=== PATIENT | female | born 1950 | race Caucasian/White ===

== ENCOUNTER 2016-07-02 19:34 | Emergency (ER) | payer OTHER ==
--- NOTE | 2016-07-02 20:39 | DIAGNOSTIC IMAGING REPORT ---
PROCEDURE: XR HAND 3 OR 4 VIEWS - LEFT INDICATION: TRAUMA/INJURY TECHNIQUE: Four views. COMPARISON: None. FINDINGS: No fracture or dislocation. Osteopenia. Mild DIP joint degenerative changes. Soft tissues are unremarkable. IMPRESSION: 1. No acute changes 2. Osteoarthritic changes
--- NOTE | 2016-07-02 22:12 | ED ORDER SUMMARY ---
..... Patient: LOUISE SAMPSON OrderSheet [facility] VisitID: [id number] [address] [place] [address] 65y, F Registration Date/Time: 07/02/2016 ORDER SHEET Weight: 72.5 kg (stated) Allergies: Sulfa Antibiotics, Tetracycline GENERAL ORDERS: Hand 3 or 4V Left Urgent (20:04 07/02/2016 HIEUean R.NRey per protocol) (20:13 Kari) Splint (UE) (Left) (Velcro - wrist) (22:10 07/02/2016 Yamil HO) (22:19 Parminder R.N.) Dress Wounds (22:07/02/2016 Yamil HO) (22:19 Parminder R.N.) MEDICATION ORDERS: Tdap IM 0.5 mL (per protocol) (22:06 07/02/2016 Yamil HO) (22:11 Parminder R.N.) IV FLUIDS: ORDER SHEET NOTES: [Electronically signed by Pricila Mason R.N. (22:22 07/02/2016)] [Electronically signed by Suman Reynoso MD (10:30 07/04/2016)] [Electronically locked/signed by Pricila Mason R.N. (22:22 07/02/2016)]
--- NOTE | 2016-07-02 22:12 | ED CLINICAL REPORT ---
Clinical Report - Physicians/Mid Levels [facility] [address] [place] [address] 07/02/2016 19:34 [id number] Time Seen: 22:01 Jul 02 2016. Arrived- By private vehicle. Historian- patient. CPT: ER phys charges level 3 (#[id number]). HISTORY OF PRESENT ILLNESS Chief Complaint: Injury to the left hand. The injury happened just prior to arrival. Occurred at home. Fell. Patient is experiencing moderate pain. No other injury. REVIEW OF SYSTEMS No swelling, tingling, numbness, weakness or foreign body. No skin laceration. All systems otherwise negative, except as recorded above. PAST HISTORY See nurses notes. Hypertension. Hyperlipidemia. C-2 fx. ADDITIONAL SURGERIES: Cervical fusion c1-T1 . . Ectopic preg. Tonsillectomy. The patient's dominant hand is the right. Tetanus immunization status is unknown. Allergies: Sulfa Antibiotics. Tetracycline. SOCIAL HISTORY Never smoker. Occasional alcohol use. No drug use. ADDITIONAL NOTES The nursing notes have been reviewed. PHYSICAL EXAM Vital Signs: 07/02/2016 19:52 BP: 188/95. HR: 88. RR: 18. O2 saturation: 97%. Temp: 98.2 F. Pain level now: 7/10. Appearance: Alert. Patient in mild distress. Head: Head atraumatic. Neck: Normal inspection. C-spine non-tender. CVS: Normal heart rate and rhythm. Respiratory: No respiratory distress. Chest nontender. Abdomen: Nontender. Back: No tenderness. Skin: Skin warm. (abrasions over the palm, left hand). Extremities: Thenar eminence, left hand: moderate tenderness and swelling and medium sized ecchymosis. Limited movement of the thumb secondary to pain and swelling (diminished opposition). Neurovascular intact distally. No deformity. Extremities otherwise negative. Neuro, Vascular and Tendons: Vascular status intact. Sensation intact. Motor intact. Tendon function intact. Neuro: Oriented X 3. No motor deficit. No sensory deficit. LABS, X-RAYS, AND EKG X-Rays: Left hand negative. PROGRESS AND PROCEDURES Patient/family counseled. Disposition: Discharged. Condition: stable. CLINICAL IMPRESSION Sprain of the metacarpophalangeal joint of the left thumb. Single contusion with abrasion to the left hand. Fall on same level by slipping. Multiple superficial abrasions to the left hand. INSTRUCTIONS Apply ice for 15-20 minutes three times a day for one days. Elevate affected areas above chest level today, for one days until better. Wear canvas splint until better. Protect wound and keep wound area clean. Change dressing twice daily. Keep wounds dry. You may wash wounds briefly, then dry. Apply neosporin twice daily. Prescription Medications: Hydrocodone/APAP 5mg/325mg: take 1 to 2 orally every 6 hours as needed for pain. Dispense fifteen (15). No refills. OTC Medications: Motrin (available over the counter): take according to label instructions. Follow-up: Follow up with your doctor in one week. Call for an appointment. Understanding of the discharge instructions verbalized by patient and family. Discharge instructions reviewed with and understanding was verbalized by spouse. (Electronically signed by Suman Reynoso MD 07/04/2016 10:30)
--- NOTE | 2016-07-02 22:12 | ED ORDER SUMMARY ---
..... Patient: LOUISE SAMPSON OrderSheet [facility] VisitID: [id number] [address] [place] [address] 65y, F Registration Date/Time: 07/02/2016 ORDER SHEET Weight: 72.5 kg (stated) Allergies: Sulfa Antibiotics, Tetracycline GENERAL ORDERS: Hand 3 or 4V Left Urgent (20:04 07/02/2016 HIEUean R.NRey per protocol) (20:13 Kari) Splint (UE) (Left) (Velcro - wrist) (22:10 07/02/2016 Yamil HO) (22:19 Parminder R.N.) Dress Wounds (22:07/02/2016 Yamil HO) (22:19 Parminder R.N.) MEDICATION ORDERS: Tdap IM 0.5 mL (per protocol) (22:06 07/02/2016 Yamil HO) (22:11 Parminder R.N.) IV FLUIDS: ORDER SHEET NOTES: [Electronically signed by Pricila Mason R.N. (22:22 07/02/2016)] [Electronically signed by Suman Reynoso MD (10:30 07/04/2016)] [Electronically locked/signed by Pricila Mason R.N. (22:22 07/02/2016)]
--- NOTE | 2016-07-02 22:12 | ED NURSING NOTES ---
Clinical Report - Nurses [facility] [address] [place] [address] 07/02/2016 19:34 Patient: LOUISE SAMPSON TRIAGE Triage time 1953. Acuity: LEVEL 4. Chief Complaint: INJURY TO LEFT HAND. 19:52. ASHLEY COMA SCORE: Ashley Coma Scale: 15- eyes open spontaneously (4); best verbal response- oriented x 4 (5); best motor response- obeys commands (6). --20:03 Karla Hoyos R.N. 19:52 07/02/16. BP: 188/95. HR: 88. RR: 18. O2 saturation: 97% on room air. Temp: 98.2 F. Pain level now: 11/30. --20:03 Karla Hoyos R.N. Weight: 72.5 kg stated. Height/Length: 61 inches Per Patient. BMI: 30.2. --20:01 Karla Hoyos R.N. Allergies Sulfa Antibiotics. --22:12 Pricila Mason R.N. Tetracycline. --22:12 Pricila Mason R.N. History Arrived by private vehicle. Historian: patient. Accompanied by friend. Primary physician (kelsey). This occurred just prior to arrival. Mechanism of injury: fell (GLF off curb, landing on outstetched hand. has abrasion to palm, state it "hurts to hold onto anything"). ( pt was shaking and pale after event for about 30 min--ok now). No neck pain. PAST MEDICAL HX: Tetanus status: unknown. The patient is post-menopausal. SOCIAL HX: Never smoker. Occasional alcohol use. No drug use. --20:03 Karla Hoyos R.N. ( fingers to left hand have good distal color, temp,cap refill and pulses). --20:03 Karla Hoyos R.N. PROBLEMS: Hypertension. Hyperlipidemia. C-2 fx. --20:00 Karla Hoyos R.N. ADDITIONAL SURGERIES: Cervical fusion c1-T1 . . Ectopic preg. Tonsillectomy. --20:00 Karla Hoyos R.N. Interventions ID band on patient. To treatment room. --20:03 Karla Hoyos R.N. NURSING PROGRESS NOTES 21:56 07/02/16. The initial plan of care for this patient includes an assessment with efforts to address the presence of pain; impairment of the musculoskeletal and integumentary system. This plan of care was discussed with the patient. Patient identifiers checked. Call light placed in reach. Side rails up x 1. Bed placed in lowest position. Brakes of bed on. Patient ready for evaluation. ( patient brought to room 5). --21:56 Pricila Mason R.N. 22:11 07/02/2016 TDAP IM 0.5 mL given. (Lot#: [id number], expiration date: 02/25/2018, Digester Operator Helper: [employer] pasteur). Given in the left deltoid. Allergies verified and confirmed 5 rights. Vaccine information statement provided to the patient. --22:11 Pricila Mason R.N. 22:15 07/02/16. Applied clean dressing consisting of 4x4 gauze, following the application of antibiotic ointment. Secured with kerlix. Velcro upper extremity splint applied to left wrist by nurse. Distal pulses intact, sensation intact and motor within normal limits. ( PATIENT INSTRUCTED TO WASH HANDS WITH WARM SOAPY WATER AND DRY.). --22:21 Pricila Mason R.N. DISPOSITION / DISCHARGE 22:07/02/16. Departure time: 22:Jul 02 2016. Condition at departure: improved and stable. The goals identified in the patient's plan of care were met. No learning barriers present. Reviewed medication(s) side effects, precautions, dosing and course information. Prescription(s) given to the patient. Reviewed referral to a primary care physician for followup. Summary of care provided to patient via paper. Patient verbalized understanding. Written instructions provided in [place]. The patient was discharged home and accompanied by spouse. She left the Emergency Department ambulatory and via private vehicle. Spouse driving. --22:21 Pricila Mason R.N. 19:52 07/02/16. BP: 188/95. HR: 88. RR: 18. O2 saturation: 97% on room air. Temp: 98.2 F. Pain level now: 11/30. --22:21 Pricila Mason R.N. Locked/Released at 07/02/2016 22:22 by Pricila Mason R.N.
--- NOTE | 2016-07-02 22:12 | ED NURSING NOTES ---
Clinical Report - Nurses [facility] [address] [place] [address] 07/02/2016 19:34 Patient: LOUISE SAMPSON TRIAGE Triage time 1953. Acuity: LEVEL 4. Chief Complaint: INJURY TO LEFT HAND. 19:52. ASHLEY COMA SCORE: Ashley Coma Scale: 15- eyes open spontaneously (4); best verbal response- oriented x 4 (5); best motor response- obeys commands (6). --20:03 Karla Hoyos R.N. 19:52 07/02/16. BP: 188/95. HR: 88. RR: 18. O2 saturation: 97% on room air. Temp: 98.2 F. Pain level now: 11/30. --20:03 Karla Hoyos R.N. Weight: 72.5 kg stated. Height/Length: 61 inches Per Patient. BMI: 30.2. --20:01 Karla Hoyos R.N. Allergies Sulfa Antibiotics. --22:12 Pricila Mason R.N. Tetracycline. --22:12 Pricila Mason R.N. History Arrived by private vehicle. Historian: patient. Accompanied by friend. Primary physician (kelsey). This occurred just prior to arrival. Mechanism of injury: fell (GLF off curb, landing on outstetched hand. has abrasion to palm, state it "hurts to hold onto anything"). ( pt was shaking and pale after event for about 30 min--ok now). No neck pain. PAST MEDICAL HX: Tetanus status: unknown. The patient is post-menopausal. SOCIAL HX: Never smoker. Occasional alcohol use. No drug use. --20:03 Karla Hoyos R.N. ( fingers to left hand have good distal color, temp,cap refill and pulses). --20:03 Karla Hoyos R.N. PROBLEMS: Hypertension. Hyperlipidemia. C-2 fx. --20:00 Karla Hoyos R.N. ADDITIONAL SURGERIES: Cervical fusion c1-T1 . . Ectopic preg. Tonsillectomy. --20:00 Karla Hoyos R.N. Interventions ID band on patient. To treatment room. --20:03 Karla Hoyos R.N. NURSING PROGRESS NOTES 21:56 07/02/16. The initial plan of care for this patient includes an assessment with efforts to address the presence of pain; impairment of the musculoskeletal and integumentary system. This plan of care was discussed with the patient. Patient identifiers checked. Call light placed in reach. Side rails up x 1. Bed placed in lowest position. Brakes of bed on. Patient ready for evaluation. ( patient brought to room 5). --21:56 Pricila Mason R.N. 22:11 07/02/2016 TDAP IM 0.5 mL given. (Lot#: [id number], expiration date: 02/25/2018, Sticker Operator: [email or web address] pasteur). Given in the left deltoid. Allergies verified and confirmed 5 rights. Vaccine information statement provided to the patient. --22:11 Pricila Mason R.N. 22:15 07/02/16. Applied clean dressing consisting of 4x4 gauze, following the application of antibiotic ointment. Secured with kerlix. Velcro upper extremity splint applied to left wrist by nurse. Distal pulses intact, sensation intact and motor within normal limits. ( PATIENT INSTRUCTED TO WASH HANDS WITH WARM SOAPY WATER AND DRY.). --22:21 Pricila Mason R.N. DISPOSITION / DISCHARGE 22:07/02/16. Departure time: 22:Jul 02 2016. Condition at departure: improved and stable. The goals identified in the patient's plan of care were met. No learning barriers present. Reviewed medication(s) side effects, precautions, dosing and course information. Prescription(s) given to the patient. Reviewed referral to a primary care physician for followup. Summary of care provided to patient via paper. Patient verbalized understanding. Written instructions provided in Mongolian. The patient was discharged home and accompanied by spouse. She left the Emergency Department ambulatory and via private vehicle. Spouse driving. --22:21 Pricila Mason R.N. 19:52 07/02/16. BP: 188/95. HR: 88. RR: 18. O2 saturation: 97% on room air. Temp: 98.2 F. Pain level now: 11/30. --22:21 Pricila Mason R.N. Locked/Released at 07/02/2016 22:22 by Pricila Mason R.N.
--- NOTE | 2016-07-02 22:12 | ED CLINICAL REPORT ---
Clinical Report - Physicians/Mid Levels [facility] [address] [place] [address] 07/02/2016 19:34 [id number] Time Seen: 22:01 Jul 02 2016. Arrived- By private vehicle. Historian- patient. CPT: ER phys charges level 3 (#[id number]). HISTORY OF PRESENT ILLNESS Chief Complaint: Injury to the left hand. The injury happened just prior to arrival. Occurred at home. Fell. Patient is experiencing moderate pain. No other injury. REVIEW OF SYSTEMS No swelling, tingling, numbness, weakness or foreign body. No skin laceration. All systems otherwise negative, except as recorded above. PAST HISTORY See nurses notes. Hypertension. Hyperlipidemia. C-2 fx. ADDITIONAL SURGERIES: Cervical fusion c1-T1 . . Ectopic preg. Tonsillectomy. The patient's dominant hand is the right. Tetanus immunization status is unknown. Allergies: Sulfa Antibiotics. Tetracycline. SOCIAL HISTORY Never smoker. Occasional alcohol use. No drug use. ADDITIONAL NOTES The nursing notes have been reviewed. PHYSICAL EXAM Vital Signs: 07/02/2016 19:52 BP: 188/95. HR: 88. RR: 18. O2 saturation: 97%. Temp: 98.2 F. Pain level now: 7/10. Appearance: Alert. Patient in mild distress. Head: Head atraumatic. Neck: Normal inspection. C-spine non-tender. CVS: Normal heart rate and rhythm. Respiratory: No respiratory distress. Chest nontender. Abdomen: Nontender. Back: No tenderness. Skin: Skin warm. (abrasions over the palm, left hand). Extremities: Thenar eminence, left hand: moderate tenderness and swelling and medium sized ecchymosis. Limited movement of the thumb secondary to pain and swelling (diminished opposition). Neurovascular intact distally. No deformity. Extremities otherwise negative. Neuro, Vascular and Tendons: Vascular status intact. Sensation intact. Motor intact. Tendon function intact. Neuro: Oriented X 3. No motor deficit. No sensory deficit. LABS, X-RAYS, AND EKG X-Rays: Left hand negative. PROGRESS AND PROCEDURES Patient/family counseled. Disposition: Discharged. Condition: stable. CLINICAL IMPRESSION Sprain of the metacarpophalangeal joint of the left thumb. Single contusion with abrasion to the left hand. Fall on same level by slipping. Multiple superficial abrasions to the left hand. INSTRUCTIONS Apply ice for 15-20 minutes three times a day for one days. Elevate affected areas above chest level today, for one days until better. Wear canvas splint until better. Protect wound and keep wound area clean. Change dressing twice daily. Keep wounds dry. You may wash wounds briefly, then dry. Apply neosporin twice daily. Prescription Medications: Hydrocodone/APAP 5mg/325mg: take 1 to 2 orally every 6 hours as needed for pain. Dispense fifteen (15). No refills. OTC Medications: Motrin (available over the counter): take according to label instructions. Follow-up: Follow up with your doctor in one week. Call for an appointment. Understanding of the discharge instructions verbalized by patient and family. Discharge instructions reviewed with and understanding was verbalized by spouse. (Electronically signed by Suman Reynoso MD 07/04/2016 10:30)
--- NOTE | 2016-07-04 10:30 | ED MAR SUMMARY ---
..... Medication Administration Record [facility] [address] [place] [address] Patient: LOUISE SAMPSON Visit ID: [id number] 65y, F Weight: 72.5 kg Height/Length: 61 in BMI: 30.2 ALLERGIES: Tetracycline, Sulfa Antibiotics Given 22:11 07/02/2016 Pricila Mason R.N. Medication Administered: TDAP [IM], Dose: 0.5 mL IM. Medication Ordered: Tdap IM 0.5 mL (per protocol).
--- NOTE | 2016-07-04 10:30 | ED MAR SUMMARY ---
..... Medication Administration Record [facility] [address] [place] [address] Patient: LOUISE SAMPSON Visit ID: [id number] 65y, F Weight: 72.5 kg Height/Length: 61 in BMI: 30.2 ALLERGIES: Tetracycline, Sulfa Antibiotics Given 22:11 07/02/2016 Pricila Mason R.N. Medication Administered: TDAP [IM], Dose: 0.5 mL IM. Medication Ordered: Tdap IM 0.5 mL (per protocol).
--- NOTE | 2016-07-04 10:30 | ED MED RECONCILIATION SUMMARY ---
Patient: LOUISE SAMPSON Medication Reconciliation Report [facility] VisitID: [id number] [address] [place] [address] 65y, F Registration Date/Time: 07/02/2016 Weight: 72.5 kg Height/Length: 61 in. BMI: 30.2 ALLERGIES: Sulfa Antibiotics, Tetracycline The patient's Home Medications are listed below: Not obtained. The source(s) of the original Home Medication information: Not obtained. The following Medications were given to the patient in the Emergency Department: TDAP [IM] IM 0.5 mL, administered: 07/02/2016 10:11:00 PM The following Medications were prescribed to the patient: Motrin (available over the counter): take according to label instructions. -- Suman Reynoso MD Hydrocodone/APAP 5mg/325mg: take 1 to 2 orally every 6 hours as needed for pain. Dispense fifteen (15). No refills. -- Suman Reynoso MD
--- NOTE | 2016-07-04 10:30 | ED MED RECONCILIATION SUMMARY ---
Patient: LOUISE SAMPSON Medication Reconciliation Report [facility] VisitID: [id number] [address] [place] [address] 65y, F Registration Date/Time: 07/02/2016 Weight: 72.5 kg Height/Length: 61 in. BMI: 30.2 ALLERGIES: Sulfa Antibiotics, Tetracycline The patient's Home Medications are listed below: Not obtained. The source(s) of the original Home Medication information: Not obtained. The following Medications were given to the patient in the Emergency Department: TDAP [IM] IM 0.5 mL, administered: 07/02/2016 10:11:00 PM The following Medications were prescribed to the patient: Motrin (available over the counter): take according to label instructions. -- Suman Reynoso MD Hydrocodone/APAP 5mg/325mg: take 1 to 2 orally every 6 hours as needed for pain. Dispense fifteen (15). No refills. -- Suman Reynoso MD
--- NOTE | 2016-07-04 10:30 | ED DISCHARGE INSTRUCTIONS ---
Patient: LOUISE SAMPSON General Instructions [facility] VisitID: [id number] [address] [place] [address] 65y, F Registration Date/Time: 07/02/2016 Sprain of the metacarpophalangeal joint of the left thumb. Single contusion with abrasion to the left hand. Fall on same level by slipping. Multiple superficial abrasions to the left hand. INSTRUCTIONS Apply ice for 15-20 minutes three times a day for one days. Elevate affected areas above chest level today, for one days until better. Wear canvas splint until better. Protect wound and keep wound area clean. Change dressing twice daily. Keep wounds dry. You may wash wounds briefly, then dry. Apply neosporin twice daily. Prescription Medications: Hydrocodone/APAP 5mg/325mg: take 1 to 2 orally every 6 hours as needed for pain. Dispense fifteen (15). No refills. OTC Medications: Motrin (available over the counter): take according to label instructions. Follow-up: Follow up with your doctor in one week. Call for an appointment. Understanding of the discharge instructions verbalized by patient and family. Discharge instructions reviewed with and understanding was verbalized by spouse. ADDITIONAL INFORMATION Mechanical Fall You have had a fall today. It appears that the cause is mechanical. That means that you slipped, tripped or lost your balance. If your fall had been due to fainting or a seizure, further tests would be required. Home Care: Rest today and resume your normal activities when you are feeling back to normal. If you were injured during the fall, follow the advice from your doctor regarding care of your injury. You may use acetaminophen (Tylenol) or ibuprofen (Motrin, Advil) to control pain, unless another pain medicine was prescribed. [NOTE: If you have chronic liver or kidney disease or ever had a stomach ulcer or GI bleeding, talk with your doctor before using these medicines.] Fall Prevention: Was there anything that caused your fall that can be fixed, removed, or replaced? Make your home safe by keeping walkways clear of objects you may trip over. Use non-slip pads under rugs. Do not walk in poorly lit areas. Do not stand on chairs or wobbly ladders. Use caution when reaching overhead or looking upward. This position can cause a loss of balance. Be sure your shoes fit properly, have non-slip bottoms and are in good condition. Be cautious when going up and down curbs, and walking on uneven sidewalks. If your balance is poor, consider using a cane or walker. Stay as active as you can. Balance, flexibility, strength, and endurance all come from exercise. They all play a role in preventing falls. Follow Up with your doctor or as advised by our staff. Get Prompt Medical Attention if any of the following occur: Repeated mechanical falls, or unexplained falls Dizziness, fainting or seizure Severe headache Chest pain or shortness of breath Palpitations (very rapid or very slow or irregular heartbeat) Blood in vomit, stools (black or red color) Weakness of an arm or leg or one side of the face Difficulty with speech or vision Abrasions Abrasions are skin scrapes. Their treatment depends on how large and deep the abrasion is. Home Care: If you were given a bandage, change it once a day. If your bandage sticks to the wound, soak it in warm water until it loosens. Wash the area with soap and water to remove all the cream/ointment. You may do this in a sink, under a tub faucet or shower. Rinse off the soap and pat dry with a clean towel. Reapply cream/ointment according to your doctor's instructions. This will prevent infection and help prevent the bandage from sticking. Cover the wound with a fresh non-stick bandage (Telfa). Repeat steps 1 to 4 daily, or as directed by your doctor. If the bandage becomes wet or dirty, change it as soon as possible. You may use acetaminophen (Tylenol) or ibuprofen (Motrin, Advil) to control pain, unless another pain medicine was prescribed. [ NOTE : If you have chronic liver or kidney disease or ever had a stomach ulcer or GI bleeding, talk with your doctor before using these medicines.] Do not use ibuprofen in children under six months of age. Follow Up with your physician or this facility as directed by our staff. Most skin wounds heal within ten days. However, an infection may occur despite proper treatment. Therefore, look for the early signs of infection listed below. Get Prompt Medical Attention if any of the following occur: Increasing pain in the wound Increasing redness or swelling Pus coming from the wound Fever of 100.4F (38C) or higher, or as directed by your healthcare provider Sprain, Hand A sprain is a stretching or tearing of the ligaments that hold a joint together. There are no broken bones. Sprains take from three to six weeks to heal. A sprained hand may be treated with a splint or elastic wrap for support. Home care The following guidelines will help you care for your injury at home: 1) Keep your ARM elevated to reduce pain and swelling. This is most important during the first 48 hours. 2) Apply an ice pack (ice cubes in a plastic bag, wrapped in a towel) over the injured area for 20 minutes every 12 hours the first day. You should continue with ice packs 34 times a day for the next two days. Continue the use of ice packs for relief of pain and swelling as needed. 3) You may use acetaminophen or ibuprofen to control pain, unless another pain medicine was prescribed. If you have chronic liver or kidney disease or ever had a stomach ulcer or GI bleeding, talk with your doctor before using these medicines. 4) If you were given a splint or elastic wrap, wear it until your pain improves. Follow-up care Follow up with your doctor as directed. Any X-rays you had today dont show any broken bones, breaks, or fractures. Sometimes fractures dont show up on the first X-ray. Bruises and sprains can sometimes hurt as much as a fracture. These injuries can take time to heal completely. If your symptoms dont improve or they get worse, talk with your doctor. You may need a repeat X-ray. When to seek medical care Get prompt medical attention if any of the following occur: Pain or swelling increases Fingers or hand becomes cold, blue, numb, or tingly Contusion,Soft Tissue You have a CONTUSION, which is a bruise with swelling and some bleeding under the skin. There are no broken bones. This injury takes a few days to a few weeks to heal. Home Care: 1) Keep the injured part elevated to reduce pain and swelling. This is especially important during the first 48 hours. 2) Make an ice pack (ice cubes in a plastic bag, wrapped in a towel) and apply for 20 minutes every 1-2 hours the first day. Continue this 3-4 times a day until the pain and swelling goes away. 3) You may use acetaminophen (Tylenol) or ibuprofen (Motrin, Advil) to control pain, unless another pain medicine was prescribed. [ NOTE : If you have chronic liver or kidney disease or ever had a stomach ulcer or GI bleeding, talk with your doctor before using these medicines.] Follow Up with your doctor or this facility if you are not improving within the next THREE days. [NOTE: If X-rays were taken, they will be reviewed by a radiologist. You will be notified of any new findings that may affect your care.] Get Prompt Medical Attention if any of the following occur: -- Pain or swelling increases -- Injured arm or leg becomes cold, blue, numb or tingly -- Redness, warmth or drainage from the skin Bandage Change If the bandage becomes wet or dirty, replace it. Otherwise, leave it in place for the first 24 hours. Then once a day: After removing the bandage, wash the area with soap and water. Use a wet cotton swab to loosen and remove any blood or crust that forms on the wound. After cleaning, apply a thin layer of antibiotic ointment or cream. Reapply the bandage. You may shower as usual after the first 24 hours. If the bandage is on an arm or leg, cover it with a plastic bag rubber banded at both ends before showering. No tub baths or swimming until the bandage is removed and the wound healed (at least 7 days). Abrasions Abrasions are skin scrapes. Their treatment depends on how large and deep the abrasion is. Home Care: If you were given a bandage, change it once a day. If your bandage sticks to the wound, soak it in warm water until it loosens. Wash the area with soap and water to remove all the cream/ointment. You may do this in a sink, under a tub faucet or shower. Rinse off the soap and pat dry with a clean towel. Reapply cream/ointment according to your doctor's instructions. This will prevent infection and help prevent the bandage from sticking. Cover the wound with a fresh non-stick bandage (Telfa). Repeat steps 1 to 4 daily, or as directed by your doctor. If the bandage becomes wet or dirty, change it as soon as possible. You may use acetaminophen (Tylenol) or ibuprofen (Motrin, Advil) to control pain, unless another pain medicine was prescribed. [ NOTE : If you have chronic liver or kidney disease or ever had a stomach ulcer or GI bleeding, talk with your doctor before using these medicines.] Do not use ibuprofen in children under six months of age. Follow Up with your physician or this facility as directed by our staff. Most skin wounds heal within ten days. However, an infection may occur despite proper treatment. Therefore, look for the early signs of infection listed below. Get Prompt Medical Attention if any of the following occur: Increasing pain in the wound Increasing redness or swelling Pus coming from the wound Fever of 100.4F (38C) or higher, or as directed by your healthcare provider You have been given the following additional information: Fall, Mechanical Abrasion Sprain Hand Contusion, Soft Tissue Dressing Change Abrasion (Electronically signed by Suman Reynoso MD 07/04/2016 10:30)
== END 2016-07-02 22:22 | disposition home or self-care (01) ==
LOC: ED SRH 19:34
DX: S63.642A Sprain of metacarpophalangeal joint of left thumb, initial encounter (principal); S60.222A Contusion of left hand, initial encounter; S60.512A Abrasion of left hand, initial encounter; W01.0XXA Fall on same level from slipping, tripping and stumbling without subsequent striking against object, initial encounter; Y93.9 Activity, unspecified; Y92.009 Unspecified place in unspecified non-institutional (private) residence as the place of occurrence of the external cause; Y99.9 Unspecified external cause status; I10 Essential (primary) hypertension; Z88.1 Allergy status to other antibiotic agents; Z88.2 Allergy status to sulfonamides